=== PATIENT | female | born 1980 | race Caucasian/White ===

== ENCOUNTER 2023-01-23 18:23 | Emergency (ER) | payer OTHER ==
[~2023-01-23] VITALS: Ht 167.6 cm; Wt 121.0 kg
[2023-01-23] MEDS ORDERED: IMITREX5 MG NAS (18:30)
[2023-01-23] MEDS ORDERED: IMITREX25 MG PO (19:06)
[2023-01-23 19:51] VITALS: BP 132/83
== END 2023-01-23 19:53 | disposition home or self-care (01) ==
LOC: ED 18:23
DX: G43.909 Migraine, unspecified, not intractable, without status migrainosus (principal)
CPT/HCPCS: 96374; 96375; 99283-25; J1200; J1885; J2405; J3030; J7121

== ENCOUNTER 2023-10-16 19:03 | Emergency (ER) | payer OTHER ==
[~2023-10-16] VITALS: Ht 167.6 cm; Wt 166.0 kg
[~2023-10-16 19:03] MED LIST: IMITREX25 MG PO; IMITREX5 MG NAS
--- OUTSIDE RECORDS SUMMARY | 2023-10-16 19:10 | XMS ---
PreManage Notification: MICHELLE JUDD Security Tile Applicator Events No recent Security Events currently on file CRITERIA MET - [facility] - 2 Visits in 30 Days CARE PROVIDERS -Jose Francisco DMD Dentist: Db[employer] Developer Current PHONE: [phone] MICH BARRON [facility]/[place]: [facility] MEDICAL PHONE: [phone] CHAPIN Chan Internal Medicine: Interventional Cardiology Current PHONE: Unknown Negrita RUST Internal Medicine Current PHONE: Unknown LUIGI MEYERS [facility] Current PHONE: Unknown Shi has no Care Guidelines for this patient. ELilliana VISIT COUNT (12 MO.) [address] [facility] TOTAL 3 NOTE: Visits indicate total known visits. ED/UCC VISIT TRACKING (12 MO.) 10/16/2023 19:04 [facility] [place] TYPE: Emergency COMPLAINT: - HEADACHE 10/12/2023 12:09 [facility] [place] TYPE: Emergency COMPLAINT: - HEADACHE DIAGNOSES: - Allergy status to other drugs, medicaments and biological substances - Headache, unspecified - Migraine, unspecified, not intractable, without status migrainosus - Palpitations - Presence of cardiac pacemaker - Radiographic dye allergy status 01/23/2023 18:23 [facility] [place] TYPE: Emergency COMPLAINT: - HEADACHE DIAGNOSES: - Headache, unspecified - Migraine, unspecified, not intractable, without status migrainosus INPATIENT VISIT TRACKING (12 MO.) No inpatient visits to display in this time frame [email or web address]
[2023-10-16] MEDS ORDERED: ondansetron HCL 4 MG/2 ML VIAL IV ONE (20:15)
[2023-10-16] MEDS ORDERED: SODIUM CHLORIDE 0.9% 1,000 ML IV ONE (20:15)
[2023-10-16] MEDS ORDERED: diphenhydrAMINE HCL 50 MG/ML VIAL IV ONE (20:15)
[2023-10-16] MEDS ORDERED: KETOROLAC TROMETHAMINE 30 MG/ML VIAL IV ONE (20:15)
[2023-10-16] MEDS ORDERED: SUMAtriptan succinate 6 MG/0.5 ML VIAL SUB-Q ONE (20:15)
[2023-10-16] MEDS ORDERED: SUMATRIPTAN SUC25 MG PO (20:50)
[2023-10-16] MEDS ORDERED: ONDANSETRON 4 MG HOME.PACK SL ONE (21:00)
[2023-10-16 21:23] VITALS: BP 139/74
== END 2023-10-16 21:23 | disposition home or self-care (01) ==
LOC: ED 19:03
DX: G43.909 Migraine, unspecified, not intractable, without status migrainosus (principal); Z95.0 Presence of cardiac pacemaker; Z91.041 Radiographic dye allergy status; Z88.8 Allergy status to other drugs, medicaments and biological substances
CPT/HCPCS: 96374; 96375; 99283-25; A9270; J1200; J1885; J2405; J3030; J7030

== ENCOUNTER 2023-12-12 00:07 | Emergency (ER) | payer OTHER ==
[~2023-12-12] VITALS: Ht 167.6 cm; Wt 166.0 kg
[~2023-12-12 00:07] MED LIST changes: +SUMATRIPTAN SUC25 MG PO
[2023-12-12] MEDS ORDERED: ONDANSETRON 4 MG TAB ODT SL ONE (00:30)
[2023-12-12] MEDS ORDERED: SUMAtriptan succinate 6 MG/0.5 ML VIAL SUB-Q ONE (00:30)
[2023-12-12] MEDS ORDERED: IMITREX25 MG PO (01:04)
[2023-12-12 01:11] VITALS: BP 136/67
== END 2023-12-12 01:12 | disposition home or self-care (01) ==
LOC: ED 00:07
DX: G43.909 Migraine, unspecified, not intractable, without status migrainosus (principal); Z95.0 Presence of cardiac pacemaker; Z88.8 Allergy status to other drugs, medicaments and biological substances; Z91.041 Radiographic dye allergy status; Z79.899 Other long term (current) drug therapy
CPT/HCPCS: 96372; 99283-25; A9270; J3030

== ENCOUNTER 2024-02-24 09:45 | Emergency (ER) | payer OTHER ==
[~2024-02-24] VITALS: Ht 167.6 cm; Wt 115.6 kg
[2024-02-24] MEDS ORDERED: IMITREX50 MG PO (14:58)
[2024-02-24] MEDS ORDERED: ondansetron HCL 4 MG TAB PO ONE (15:00)
[2024-02-24] MEDS ORDERED: SUMAtriptan succinate 6 MG/0.5 ML VIAL SUB-Q ONE (15:00)
[2024-02-24 15:48] VITALS: BP 164/96
== END 2024-02-24 15:50 | disposition home or self-care (01) ==
LOC: ED 09:45
DX: G43.909 Migraine, unspecified, not intractable, without status migrainosus (principal); Z95.0 Presence of cardiac pacemaker; Z91.041 Radiographic dye allergy status; Z88.8 Allergy status to other drugs, medicaments and biological substances
CPT/HCPCS: 99283; A9270; J3030